=== PATIENT | male | born 1960 | race Caucasian/White ===

== ENCOUNTER 2020-08-24 12:21 | Emergency (ER) | payer SELFPAY ==
[~2020-08-24] VITALS: Ht 172.7 cm; Wt 87.1 kg
[2020-08-24 12:21] VITALS: BP 158/91
--- NOTE | 2020-08-24 12:25 | NUR ---
PATIENT BIB [employer]. PT IS PREBOOK AND REQUIRES MEDICAL CLEARANCE. PT C/O RIGHT SHOULDER PAIN. PT STATES THE PAIN STARTED ONCE HE WAS PLACED IN HANDCUFFS HE FELT HIS RIGHT SHOULDER "POP" PT DENIES ANY OTHER INJURY. PT DENIES MEDICAL HX. [id number].
--- NOTE | 2020-08-24 12:57 | NUR ---
pt is being taken to xray via [facility] accompanied by PD.
--- NOTE | 2020-08-24 13:02 | NUR ---
Patient returned from XRAY.
[2020-08-24 13:25] VITALS: BP 158/91
--- NOTE | 2020-08-24 13:25 | NUR ---
PATIENT EXAMINED BY DR. WILSON AND MEDICALLY CLEAR AND OKAY TO BOOK. PATIENT RELEASED IN CUSTODY OF [facility] IN STABLE CONDITION. ORIGINAL PRE-BOOK FORM GIVEN TO OFFICER KAREN. DISCHARGE INSTRUCTIONS AND COPY OF X-RAY PROVIDED TO OFFICER. PT AMBULATED OUT OF FACILITY WITH STEADY GAIT IN CUSTODY.
== END 2020-08-24 13:25 ==
LOC: MED 12:21
DX: M25.511 Pain in right shoulder (principal); M54.9 Dorsalgia, unspecified; Z02.89 Encounter for other administrative examinations
CPT/HCPCS: 73030; 99283